=== PATIENT | male | born 1990 | race African-American/Black ===

== ENCOUNTER 2024-11-15 15:37 | Emergency (ER) | payer SELFPAY ==
[~2024-11-15] VITALS: Ht 162.6 cm; Wt 72.6 kg
[2024-11-15 16:05] VITALS: BP 126/75
[2024-11-15] MEDS ORDERED: OMEP20CA15 PO (16:08)
[2024-11-15] MEDS ORDERED: MAG HYDROX/AL HYDROX/SIMETH 30 ML LIQUID UDC ONE (17:36)
[2024-11-15] MEDS ORDERED: LIDOCAINE VISCUS 2% 15 ML UDC ONE (17:36)
[2024-11-15] MEDS: MAG HYDROX/AL HYDROX/SIMETH 30 ML LIQUID UDC PO ONE (17:38)
[2024-11-15] MEDS: LIDOCAINE VISCUS 2% 15 ML UDC MM ONE (17:38)
[2024-11-15] MEDS ORDERED: viscous lidocaine (17:40)
[2024-11-15 17:51] VITALS: BP 125/74; TEMP 98.2; O2SAT 100
[2024-11-16] MEDS ORDERED: viscous lidocaine (20:57)
== END 2024-11-15 17:52 | disposition home or self-care (01) ==
LOC: ER 15:37
DX: K21.9 Gastro-esophageal reflux disease without esophagitis (principal); E88.810 Metabolic syndrome; Z79.899 Other long term (current) drug therapy
CPT/HCPCS: A4606; A4663